=== PATIENT | female | born 1935 | race Caucasian/White ===

== ENCOUNTER 2017-01-23 06:13 | Day surgery (SDC) | payer MEDICARE ==
[~2017-01-23] VITALS: Ht 152.4 cm; Wt 67.0 kg
[2017-01-23 07:18] VITALS: BP 170/88; PULSE 94; RESP 18; O2SAT 100
[2017-01-23] MEDS ORDERED: METF500T PO (07:18)
[2017-01-23] MEDS ORDERED: AMLO5TAB2 PO (07:18)
[2017-01-23] MEDS ORDERED: TRAZ150T75 PO (07:18)
[2017-01-23] MEDS ORDERED: VITA100021 SL (07:18)
[2017-01-23] MEDS ORDERED: RANI300C PO (07:18)
[2017-01-23] MEDS ORDERED: VITA20003 (07:18)
[2017-01-23] MEDS ORDERED: LOMO2.5T PO (07:18)
[2017-01-23] MEDS ORDERED: SIME1CHW13 CHEW (07:18)
[2017-01-23] MEDS ORDERED: GLIM1TAB PO (07:18)
[2017-01-23] MEDS ORDERED: HYDR12.56 PO (07:18)
[2017-01-23] MEDS ORDERED: GABA100C4 PO (07:18)
[2017-01-23] MEDS ORDERED: LOVA10TA PO (07:18)
[2017-01-23] MEDS ORDERED: LISI40TA PO (07:18)
[2017-01-23] MEDS ORDERED: MIDAZOLAM HCL 5 MG/5 ML VIAL ONE (08:28)
[2017-01-23] MEDS ORDERED: HEPARIN SODIUM - IV 10,000 UNITS/10 ML VIAL ONE (08:28)
[2017-01-23] MEDS ORDERED: HEPARIN-NS/PF INJ 500 ML ONE (08:28)
[2017-01-23] MEDS ORDERED: NITROGLYCERIN INJ 5 ML ONE (08:28)
[2017-01-23] MEDS ORDERED: CLOPIDOGREL 300 MG TAB ONE (09:41)
[2017-01-23] MEDS ORDERED: ATOR40TA16 PO (09:54)
[2017-01-23] MEDS ORDERED: PLAV75TA29 PO (09:54)
--- NOTE | 2017-01-23 09:55 | CATHPROC ---
[employer] HIS Report Study Information Study Number Admission Scheduled Start Study Start [id number] 01/23/2017 01/23/2017 01/23/2017 [place] Service Cath Endovascular Study Referring Institution Admit Source Facility Department 1 [facility] - Liner Checker Physician and Clinical Staff Initial [facility] [employer] Agent Pilar Jalloh,LINN Recorder Yuli Oconnor,RAH TECH2 Scrub Hosterman, Hamilton,RT(R) Procedures Performed Procedure Location (Site) Vessel Name Angiogram (manual) Fem Sup. (left) Femoral Art Angiogram (manual) Fem Sup. (right) Femoral Art Angiogram (manual) Iliac L. Com. (L4) [place] Art. Angiogram (manual) Iliac R. Com. (R4) [place] Art. Angiogram (manual) PELVIS Angiogram (manual) Popliteal L (L10) Popliteal Angiogram (manual) Popliteal R (R10) Popliteal Angiogram (manual) Tib, Post (Left) Popliteal Angiogram (manual) Tib, Post (right) Popliteal DRYING MACHINE BACK TENDER Fem Sup. (left) Femoral Art DRYING MACHINE BACK TENDER Popliteal L (L10) Popliteal Wire insertion Fem Art (right) Femoral Art Equipment Time Polishing Machine Operator Description Size Mfg Part Number Used/Scraped DBP- CARDIOVASCULAR CATHETER, STEALTH SOLID 09:06 [id number] Used SYSTEM[employer] INC. 1.5MM 30 GRIT *[id number] DBP- CARDIOVASCULAR CATHETER, STEALTH SOLID 09:08 [id number] Used [employer] 1.5MM 30 GRIT *[id number] CARDIOVASCULAR LUBRICANT, VIPERSLIDE [id number] 09:05 Used SYSTEMS INC. ATHERCTOMY *[id number] CARDIOVASCULAR 09:05 WIRE, FIRM (VIPER) 335 [id number] Used SYSTEMS INC. 08:53 CORDIS/ BIANKA RIM SUPER TORQUE CATHETER FR 5 [id number] Used BALLOON, ADMIRAL IN.PACT 6 X 09:27 [employer] 130CM [id number] Used 150 130CM BALLOON, ADMIRAL IN.PACT 6 X 09:20 [employer] 130CM [id number] Used 80 130CM BALLOON, PACIFIC PLUS 5 X 80 09:18 [employer] 130CM [id number] Used 130CM CATHETER, FR5 TRAILBLAZER [id number] 09:00 [employer] 135CM Used .035 *[id number] 08:53 MALLINCKRODT SYRINGE, ANGIOMAT 150ML 150ML [id number] Used 08:53 MED[employer] IND[employer] PACK, CCL CUSTOM * [id number] Used 08:53 MEDLINE PACER PEN, SKIN DUAL W/ RULER * [id number] Used [id number] 09:01 [employer] MEDICAL 30 TERRY INDEFLATOR Used *[id number] PSI-6F-- 09:30 [employer] MEDICAL SHEATH, FR6.5 PRELUDE 11CM FR 6.5 038ACT Used *[id number] 08:53 [employer] WIRE, EXCHANGE 260CM 3MMJ 260CM [id number] Used 08:53 NAMIC MANIFOLD, 4 PORT * [id number] Used 08:53 NAMIC TUBING, HIGH PRESSURE 48" 48" [id number] Used 08:53 [employer] OMNIPAQUE, 300 MG, 100ML 100ML [id number] Used 08:53 [employer] OMNIPAQUE, 300 MG, 100ML 100ML [id number] Used 08:55 [employer] OMNIPAQUE, 300 MG, 50ML 50ML [id number] Used 08:53 [facility] BLANKET,WARM AIR CCL * [id number] Used 08:53 TERUMO MEDICAL SHEATH, FR5 TERUMO (10CM) FR 5 [id number] Used SHEATH, FR6 PINNACLE 08:58 TERUMO MEDICAL/BIANKA FR 6 [id number] Used DESTINATION 45CM WIRE, ANGLE GLIDE STIFF .035 08:53 TERUM[employer] MEDICAL/BIANKA 260CM [id number] Used 260CM Equipment Model, Serial, Lot Number and Expiration Data Description Model Number Serial Number Lot Number Expiration Date BALLOON, ADMIRAL IN.PACT 6 X [id number] 05-04-2018 150 130CM BALLOON, ADMIRAL IN.PACT 6 X [id number] 08-10-2018 80 130CM CATHETER, STEALTH SOLID 1.5MM [id number] 09-16-2018 30 GRIT CATHETER, STEALTH SOLID 1.5MM [id number] 09-16-2018 30 GRIT SHEATH, FR6.5 PRELUDE 11CM [id number] 10-17-2019 WIRE, FIRM (VIPER) 335 [id number] 09-16-2018 History: Current Medications Medication Dosage/Unit Route Frequency Last Date/Time Taken NORVASC HCTZ LISINOPRIL Statins (any) Glucophage History: Risk Factors Hypertension Dyslipidemia Yes Yes Peripheral Artery On Dialysis Diabetes Disease History: Other Disease Selection Items Cancer Depression Gerd Renal Failure/Insufficiency History: Other Current Smoker Method Yes Cigarettes Medication Medication Total Dose (Bolus/Oral) Medication Total Dosage/Unit 1% XYLOCAINE 20 mL FENTANYL 100 mcg HEPARIN 5000 units NTG (IC) 500 mcg OXYGEN 2 l/min PLAVIX 600 mg VERSED 5 mg Medications (Bolus/Oral) Medication Time Given Dosage/Unit Administered By Reason VERSED 01/23/2017 8:48:17 AM 2 mg Hany, Pilar 2 mg VERSED given in lab by Pilar Jalloh RN in Left Forearm via Peripheral IV. Ordered by Hansel Jimenez. FENTANYL 01/23/2017 8:49:20 AM 50 mcg Emilee Jallohnifer 50 mcg FENTANYL given in lab by Pilar Jalloh RN in Left Forearm via Peripheral IV. Ordered by Hansel Avelar. 1% XYLOCAINE 01/23/2017 8:51:00 AM 20 mL Hansel Jimenez Patient arrived on 20 mL 1% XYLOCAINE given by Hansel Jimenez in Right Groin via Subcutaneous. OXYGEN 01/23/2017 8:56:29 AM 2 l/min Pilar Jalloh 2 l/min OXYGEN given in lab by Pilar Jalloh RN via Nasal. Ordered by Hansel Jimenez. HEPARIN 01/23/2017 9:03:05 AM 5000 units Pilar Jalloh 5000 units HEPARIN given in lab by Pilar Jalloh RN in Left Forearm via Peripheral IV. Ordered by Hansel Jimenez. NTG (IC) 01/23/2017 9:08:47 AM 100 mcg Hansel Jimenez 100 mcg NTG (IC) given in lab by Hansel Jimenez via Intra-arterial. Ordered by Hansel Jimenez. VERSED 01/23/2017 9:09:33 AM 1 mg Emilee Jallohnifer 1 mg VERSED given in lab by Pilar Jalloh RN in Left Forearm via Peripheral IV. Ordered by Hansel Jimenez. FENTANYL 01/23/2017 9:10:38 AM 25 mcg Emilee Jallohnifer 25 mcg FENTANYL given in lab by Pilar Jalloh RN in Left Forearm via Peripheral IV. Ordered by Hansel Avelar. NTG (IC) 01/23/2017 9:11:48 AM 200 mcg Hansel Jimenez 200 mcg NTG (IC) given in lab by Hansel Jimenez via Intra-arterial. Ordered by Hansel Jimenez. NTG (IC) 01/23/2017 9:13:57 AM 200 mcg Hansel Jimenez 200 mcg NTG (IC) given in lab by Hansel Jimenez via Intra-arterial. Ordered by Hansel Jimenez. VERSED 01/23/2017 9:14:34 AM 1 mg Adamy, Pilar 1 mg VERSED given in lab by Pilar Jalloh RN in Left Forearm via Peripheral IV. Ordered by Hansel Jimenez. FENTANYL 01/23/2017 9:15:59 AM 25 mcg Adamy, Pilar 25 mcg FENTANYL given in lab by Pilar Jalloh RN in Left Forearm via Peripheral IV. Ordered by Hansel Avelar. VERSED 01/23/2017 9:29:10 AM 1 mg Adamy, Pilar 1 mg VERSED given in lab by Pilar Jalloh RN in Left Forearm via Peripheral IV. Ordered by Hansel Jimenez. PLAVIX 01/23/2017 9:48:57 AM 600 mg Hany, Pilar 600 mg PLAVIX given in lab by Pilar Jalloh RN via Oral. Ordered by Hansel Jimenez. Medication (Drip) Medication Time Given Dosage/Unit Concentration/Unit Diluent (ml) Solution IV Solutions 01/23/2017 8:22:27 AM 0 mL (IV) 500 NaCl .9 Patient arrived on IV Solutions given by Pilar Jalloh RN in Left Forearm via Peripheral IV. Pump/ Drip Flow = 20 ml/hr using NaCl .9. Initial Case Assessment Cardiovascular HR Rhythm NIBP Chest Pain 89 sr 174/87 0 Edema Present Skin color Skin None Normal Warm Dry Circulatory - Right Pulses Dorsalis Pedis Posterior Tibial Femoral 2 d 2 Scale (0,1,2,3,4,d) Circulatory - Left Pulses Dorsalis Pedis Posterior Tibial Femoral 1 d 1 Scale (0,1,2,3,4,d) Neurological State Oriented to time-place- Alert Moves all extremities person Respiration - General Respiration Rate SpO2 (%) (B/min) 10 99 Final Case Assessment Cardiovascular HR Rhythm NIBP Chest Pain 88 sr 164/101 0 Circulatory - Right Pulses Dorsalis Pedis Posterior Tibial Femoral 2 d 2 Scale (0,1,2,3,4,d) Circulatory - Left Pulses Dorsalis Pedis Posterior Tibial Femoral 1 d 1 Scale (0,1,2,3,4,d) Neurological State Oriented to time-place- Alert Moves all extremities person Respiration - General Respiration Rate SpO2 (%) O2 (lpm) (B/min) 11 100 2 Chronological Log Time Study Chronological Log 8:21:43 Patient arrived via Bed. 8:21:46 Patient Name, D.O.B, / Armband Verified By R.N. 8:21:47 Consent signed by the physician and the patient and verified by the Liner Checker staff. 8:21:48 Pre-op and post- op instructions given; patient acknowledges understanding of instructions. 8:21:49 Verbal Stimulation=2 Physical Stimulation=2 Airway=2 Respiration=2 TOTAL=8. (0=absent, 1=miner ited, 2=present) 8:21:51 Presedation assessment performed by Liner Checker RN. 8:21:53 Patient has been NPO for More than 6Hrs. 8:21:54 Skin Breakdown-none 8:21:55 Vasile Prominences Protected 8:21:59 A # 20 IV was noted in the Forearm (left). Grade = patent Patient arrived on IV Solutions given by Pilar Jalloh, RN in Left Forearm via Peripheral IV. Pump/Drip Flow = 20 8:22:27 ml/hr using NaCl .9. 8:22:52 History and physical on the chart or being dictated. Assessment: Initial Case, HR=89 BPM, Rhythm=sr, QZVH=573/87 mmhg, Chest Pain=0, Edema=None, [place] r=Normal, Skin = Warm, Dry Right Pulses: Gualberto Ped=2, Post Tib=d, Femoral=2 8:22:53 Left Pulses: Gualberto Ped=1, Post Tib=d, Femoral=1 Neurological: State=Alert, Ox3, SINHA Respiration: Resp=10 B/min, SpO2=99 % Vitals capture started with the following parameters, Patient=Adult, Interval=5 min, Initial Pre mxtgh=079 mmHg, 8:25:00 Deflation Rate=5 mmHg 8:26:23 WSSS=596/102 mmhg, SpO2=99.0 % 8:30:49 HR=89 bpm, AUDU=346/93 mmhg, SpO2=99.0 %, Resp=11 B/min 8:35:48 HR=92 bpm, ZPKO=826/87 mmhg, SpO2=99.0 %, Resp=10 B/min, Pain=0, Neil=10, Brambila=2 8:36:48 Bilateral groins prepped with 2% chlorhexidine, and draped after a 3 min. waiting time. 8:41:13 HR=93 bpm, TQSA=774/94 mmhg, SiE7=665.0 %, Resp=9 B/min, Pain=0, Neil=10, Brambila=2 8:42:24 MD paged 8:42:30 Pressure channel 1 zeroed. 8:45:11 MD responded 8:45:48 HR=92 bpm, ENBG=835/91 mmhg, SpO2=99.0 %, Resp=13 B/min 8:47:31 MD arrived. 8:48:17 2 mg VERSED given in lab by Pilar Jalloh, LINN in Left Forearm via Peripheral IV. Ordered b y Hansel Jimenez. 8:49:20 50 mcg FENTANYL given in lab by Pilar Jalloh, LINN in Left Forearm via Peripheral IV. Order ed by Hansel Jimenez. Time Out. Correct patient, correct procedure,correct physician, power injector loaded with contr ast with surgical team 8:50:43 present. Time Out Concurred by MD and individual staff in procedure 8:50:56 Case Start 8:51:00 Patient arrived on 20 mL 1% XYLOCAINE given by Hansel Jimenez in Right Groin via Subcutaneou s. 8:51:23 Access site was Right Femoral Artery. 8:51:41 A WIRE, EXCHANGE 260CM 3MMJ 260CM was inserted via Fem Art (right). 8:51:59 AW=935 bpm, IBSG=462/100 mmhg, SpO2=92.0 %, Resp=7 B/min 8:52:30 A SHEATH, FR5 TERUMO (10CM) FR 5 was advanced into the Fem Art (right) using the Percutaneou s technique. A PIGTAIL ANG. INFINITI CATHETER FR 5 was advanced over a wire. OMNIPAQUE, 300 MG, 50ML 50ML was used for 8:54:19 injections. After removing the current catheter a RIM SUPER TORQUE CATHETER FR 5 was advanced over a WIRE, E XCHANGE 8:55:14 260CM 3MMJ 260CM. 8:55:44 LB=389 bpm, NNQX=500/89 mmhg, SpO2=92 %, Resp=10 B/min 8:55:58 Wire removed Recorded Pressure: Ao, FR=339, Condition=Condition 1 8:56:14 (Aorta) Ao 170/80/119 8:56:29 2 l/min OXYGEN given in lab by Pilar Jalloh, RN via Nasal. Ordered by Hansel Jimenez. 8:56:47 PELVIS angiogram, manually injected. 8:57:03 Iliac L. Com. (L4) angiogram, manually injected. 8:57:27 Fem Sup. (left) angiogram, manually injected. 8:57:47 Popliteal L (L10) angiogram, manually injected. 8:58:27 Tib, Post (Left) angiogram, manually injected. 8:59:58 A WIRE, ANGLE GLIDE STIFF .035 260CM 260CM was inserted up and over to the left via Fem Art (right). 9:00:45 HR=99 bpm, UXBN=103/90 mmhg, DoL2=173.0 %, Resp=10 B/min 9:02:46 Catheter was removed w/o difficulty A SHEATH, FR6 PINNACLE DESTINATION 45CM FR 6 was exchanged in the Fem Art (right). This was nece ssary in 9:02:52 order to accomodate a larger catheter. 9:03:05 5000 units HEPARIN given in lab by Pilar Jalloh, RN in Left Forearm via Peripheral IV. Or dered by Hansel Jimenez. A CATHETER, FR5 TRAILBLAZER .035 135CM was advanced over a wire. OMNIPAQUE, 300 MG, 100ML 100ML was 9:04:09 used for injections. 9:04:46 Wire removed 9:04:50 Popliteal L (L10) angiogram, manually injected. 9:05:48 HR=99 bpm, ELGF=056/84 mmhg, DxZ1=668.0 %, Resp=8 B/min 9:07:11 Tib, Post (Left) angiogram, manually injected. 9:08:03 A WIRE, FIRM (VIPER) 335 was inserted up and over to the left via Fem Art (right). 9:08:28 Catheter was removed w/o difficulty 9:08:30 Popliteal L (L10) angiogram, manually injected. 9:08:47 100 mcg NTG (IC) given in lab by Hansel Jimenez via Intra-arterial. Ordered by Cass Jimenez 9:09:33 1 mg VERSED given in lab by Pilar Jalloh RN in Left Forearm via Peripheral IV. Ordered Hansel Banks. 9:10:19 An CATHETER, STEALTH SOLID 1.5MM 30 GRIT catheter was inserted into the Fem Art (right). 9:10:38 25 mcg FENTANYL given in lab by Pilar Jalloh RN in Left Forearm via Peripheral IV. Order ed by Hansel Jimenez. 9:10:45 KG=750 bpm, ZNPT=180/77 mmhg, IrE6=878.0 %, Resp=11 B/min 9:10:57 Passes made at 60,000 in the left popliteal with the 1.5 crown 9:11:48 200 mcg NTG (IC) given in lab by Hansel Jimenez via Intra-arterial. Ordered by Cass Jimenez 9:11:54 Passes made at 120,000 in the left popliteal with the 1.5 crown. 9:12:36 Passes made with the 1.5 crown in the LSFA 9:13:57 200 mcg NTG (IC) given in lab by Hansel Jimenez via Intra-arterial. Ordered by Cass Jimenez 9:14:08 Passes made with the 1.5 crown in the LSFA. 9:14:34 1 mg VERSED given in lab by Pilar Jalloh RN in Left Forearm via Peripheral IV. Ordered Hansel Banks. 9:15:24 1.5 crown atherectomy Catheter was removed w/o difficulty 9:15:31 Activated Clotting Time Drawn 9:15:59 25 mcg FENTANYL given in lab by Pilar Jalloh RN in Left Forearm via Peripheral IV. Order ed by Hansel Jimenez. 9:16:21 HR=99 bpm, WCUL=304/99 mmhg, SpO2=97.0 %, Resp=11 B/min 9:16:50 A BALLOON, PACIFIC PLUS 5 X 80 130CM 130CM was inserted over WIREFRANK (VIPER) 335 via the Fem Art (right). 9:16:51 In the Fem Sup. (left) a BALLOON, PACIFIC PLUS 5 X 80 130CM 130CM was inflated to 6 atms for 60 seconds. 9:17:53 In the Fem Sup. (left) a BALLOON, PACIFIC PLUS 5 X 80 130CM 130CM was inflated to 6 atms for 30 seconds. 9:18:30 In the Fem Sup. (left) a BALLOON, PACIFIC PLUS 5 X 80 130CM 130CM was inflated to 6 atms for 30 seconds. 9:19:23 Balloon Removed. 9:19:58 ACT (Normal Range 90-180) = 251 A CATHETER, FR5 TRAILBLAZER .035 135CM was advanced over a wire. OMNIPAQUE, 300 MG, 100ML 100ML was 9:20:40 used for injections. 9:20:49 HR=97 bpm, TIVW=590/86 mmhg, SpO2=96.0 %, Resp=9 B/min 9:20:52 The previous wire was exchanged for a WIRE, ANGLE GLIDE STIFF .035 260CM 260CM. A BALLOON, ADMIRAL IN.PACT 6 X 80 130CM 130CM was inserted over WIRE, ANGLE GLIDE STIFF .035 260 CM 9:21:58 260CM via the Popliteal L (L10). 9:22:36 In the Popliteal L (L10) a BALLOON, ADMIRAL IN.PACT 6 X 80 130CM 130CM was inflated to 6 terry s for 60 seconds. 9:23:03 In the Popliteal L (L10) a BALLOON, ADMIRAL IN.PACT 6 X 80 130CM 130CM was inflated to 8 terry s for 180 seconds. 9:25:46 HR=95 bpm, YYAW=198/92 mmhg, SpO2=98.0 %, Resp=9 B/min A BALLOON, ADMIRAL IN.PACT 6 X 150 130CM 130CM was inserted over WIRE, ANGLE GLIDE STIFF .035 26 0CM 9:28:20 260CM via the Fem Art (right). 9:29:05 In the Fem Sup. (left) a BALLOON, ADMIRAL IN.PACT 6 X 150 130CM 130CM was inflated to 8 atms for 180 seconds. 9:29:10 1 mg VERSED given in lab by Pilar Jalloh, LINN in Left Forearm via Peripheral IV. Ordered Hansel Banks. 9:31:26 HR=96 bpm, MQHW=117/104 mmhg, ItO5=468.0 %, Resp=10 B/min 9:33:39 Sheath pulled back into Aorta, pressures measured Recorded Pressure: LIlcA, HR=91, Condition=Condition 1 9:34:57 (Left Iliac Artery) LIlcA 115/65/90 Recorded Pressure: LIlcA, AoAbd, HR=89, Condition=Condition 1 9:35:00 (Left Iliac Artery) LIlcA 115/69/90, (Descending Abdominal Aorta) AoAbd 146/69/99 Recorded Pressure: AoAbd, HR=91, Condition=Condition 1 9:35:05 (Descending Abdominal Aorta) AoAbd 142/69/99 Recorded Pressure: AoAbd, HR=91, Condition=Condition 1 9:35:12 (Descending Abdominal Aorta) AoAbd 166/81/119 9:35:54 Iliac R. Com. (R4) angiogram, manually injected. 9:36:18 Fem Sup. (right) angiogram, manually injected. 9:36:26 Popliteal R (R10) angiogram, manually injected. 9:36:27 HR=92 bpm, ZOIN=985/105 mmhg, RxC2=659.0 %, Resp=12 B/min 9:36:43 Tib, Post (right) angiogram, manually injected. 9:37:32 A WIRE, EXCHANGE 260CM 3MMJ 260CM was inserted via Fem Art (right). A SHEATH, FR6.5 PRELUDE 11CM FR 6.5 was exchanged in the Fem Art (right). This was necessary in order to 9:37:43 minimize site leakage. 9:40:10 Case End Assessment: Final Case, HR=88 BPM, Rhythm=sr, VJUG=996/101 mmhg, Chest Pain=0 Right Pulses: Gualberto Ped=2, Post Tib=d, Femoral=2 9:40:14 Left Pulses: Gualberto Ped=1, Post Tib=d, Femoral=1 Neurological: State=Alert, Ox3, SINHA Respiration: Resp=11 B/min, OmI2=477 %, O2=2 lpm 9:40:46 In the Fem Art (right) the SHEATH, FR6.5 PRELUDE 11CM FR 6.[address] by [place] Live RT(R). 9:40:50 HR=90 bpm, OVZZ=262/101 mmhg, FiS6=342.0 %, Resp=9 B/min 9:41:48 Sterile dressing applied to site 9:46:25 HANO=862/96 mmhg, VyH5=472.0 % 9:46:29 Vitals capture stopped. 9:47:49 No case complications noted. 9:47:50 Cine recording checked. 9:47:52 Bedside Report will be given. 9:47:57 Patient moved to stretcher 9:48:57 600 mg PLAVIX given in lab by Pilar Jalloh RN via Oral. Ordered by Hansel Jimenez. 9:51:35 Patient transported to DOCU End Study - Contrast Media Used In Study Contrast Total Opened (mL) Total Used (mL) Total Wasted (mL) Omnipaque 145 145 0 End Study - Radiation Exposure Fluoro Time (minutes) 10.2 End Study - Patient Disposition Complications Transferred To Interventional Outcome No Telemetry Bed successful
[2017-01-23] MEDS ORDERED: LORazepam 2 MG/ML VIAL IV PRN (10:00)
[2017-01-23] MEDS ORDERED: SODIUM CHLOR 0.9% 1000 ML INJ 1,000 ML IV SCH (10:00)
[2017-01-23] MEDS ORDERED: MORPHINE SULFATE 4 MG/ML INJ IV PUSH PRN (10:00)
[2017-01-23] MEDS ORDERED: LIDOCAINE 2% JELLY 30 ML TUBE TOP PRN (10:00)
[2017-01-23] MEDS ORDERED: ATROPINE SULFATE 1 MG/ML VIAL IV PRN (10:00)
[2017-01-23] MEDS ORDERED: LIDOCAINE HCL 1% 50 ML VIAL INFIL PRN (10:00)
[2017-01-23] MEDS ORDERED: SODIUM CHLOR 0.9% 250 ML INJ 250 ML IV PRN (10:00)
[2017-01-23] MEDS ORDERED: MISC INFORMATION XX ONE (10:00)
[2017-01-23] MEDS ORDERED: ONDANSETRON HCL 4 MG/2 ML VIAL IV PRN (10:00)
[2017-01-23] MEDS ORDERED: METOCLOPRAMIDE HCL 10 MG/2 ML VIAL IV PRN (10:00)
[2017-01-23] MEDS ORDERED: ACETAMINOPHEN 325 MG TAB PO PRN (10:00)
[2017-01-23] MEDS ORDERED: CLOPIDOGREL 300 MG TAB PO ONE (10:00)
[2017-01-23] MEDS ORDERED: TEMAZEPAM 15 MG CAP PO PRN (10:00)
[2017-01-23] MEDS ORDERED: BACITRACIN OINT 0.9 GM PKT TOP ONE (11:00)
[2017-01-23] MEDS ORDERED: oxyCODONE/ACETAMINOPHEN 10 MG/325 MG TAB PO PRN (11:00)
--- NOTE | 2017-01-23 11:26 | MA ---
cc: ROHINI MOLINA DATE 01/23/2017 PERIPHERAL ANGIOGRAPHY WITH INTERVENTION. PROCEDURE PERFORMED 1. Fluoroscopy with interpretation. 2. Descending aortography. 3. Bilateral lower extremity peripheral angiography with first, second and third order visualization interpretation. 4. Orbital rotational atherectomy and balloon angioplasty with drug-coated balloons of the left superficial femoral and popliteal arteries. METHOD The risks, benefits and alternatives were discussed with the patient. The patient understood and consented. PROCEDURE The patient was brought into the catheterization lab, placed on the catheterization table. The right groin was prepped and draped in a sterile fashion. The right groin was anesthetized with 2% lidocaine. The right common femoral artery was cannulated and a 5-Somali, 11-cm sheath was placed without difficulty. DESCENDING AORTOGRAPHY Descending aortography was performed in anterior and posterior view using a 24-cc contrast injection with good opacification. Descending aortography revealed mild infrarenal descending aortic atherosclerosis. PERIPHERAL ANGIOGRAPHY 1. Left common iliac artery has a heavily calcified eccentric 75% stenosis. There is a 40 mmHg translesional gradient. The left external and internal iliac arteries have minor luminal irregularities. The left common femoral also has moderate calcium present but no obstructive disease. The left profunda artery has minor luminal irregularities. The left superficial femoral artery in the mid-segment has 70% calcific stenosis. The left popliteal artery has 90% discrete stenosis which is also calcific. There is three-vessel runoff below the knee in the left lower extremity with small vessel distal disease. Anterior, posterior tibial and peroneal vessels are patent. 2. Right common internal and external iliac arteries have minor luminal irregularities. The right common femoral also has moderate calcium present but no significant obstruction. The right profunda artery has mild luminal irregularities. The left superficial femoral artery in the mid-segment has heavily calcified 80% stenosis. The right popliteal artery has 90% calcific stenosis. There is three-vessel runoff below the knee in the right lower extremity. The peroneal is smaller in caliber size. The anterior tibial is larger caliber. The posterior tibial appears to be occluded proximally and canal collateralized distally. PERCUTANEOUS INTERVENTION A 6-Somali, 45-cm [employer] Throckmorton sheath was advanced up-and-over the arch. Heparin was administered throughout the entire procedure to maintain appropriate coagulation. Orbital rotational atherectomy was then performed at 60,000, then 120,000 revolutions per minute sequentially in the left superficial and popliteal arteries. A 5.0 x 80-mm Medtronic balloon was then predilated through the superficial and popliteal arteries. A 6.0 x 80-mm drug-coated balloon was then deployed in the left popliteal artery for prolonged inflation, followed by a 6.0 x 150-mm Medtronic drug-coated balloon in the left superficial femoral artery for prolonged inflation. Repeat angiography showed no significant residual stenosis, TERENCE-3 flow. The sheath was removed and a 6-Somali short sheath was placed without difficulty. CONCLUSIONS 1. 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 2. Severe left common iliac artery stenosis. 3. Mild infrarenal descending aortic atherosclerosis. 4. Successful orbital rotational atherectomy and balloon angioplasty with drug-coated balloon of the left superficial and popliteal arteries. PLAN The patient will be monitored closely for any post-procedural complications. I think this will translate well to symptomatic improvement in the left lower extremity. She had previously complained of left hip pain which I thought was osteoarthritic but seeing the left common iliac artery stenosis, this may be the origin to her symptoms. We elected not to proceed with intervention of the left common iliac artery. Our anticipation is to bring her back for an elective intervention of the right lower extremity at which time we will then address the left common iliac artery stenosis. We will initiate Plavix. Anticipate discharge later today. MD MARCELA Cabrera/STEPHENIE /9:47 AM /11:09 AM
[2017-01-23] MEDS ORDERED: IOHEXOL 350 MG/ML 100 ML BTL (for Cath Lab) OTHER ONE (13:59)
[2017-01-24] MEDS ORDERED: CLOPIDOGREL 75 MG TAB PO SCH (09:00)
== END 2017-01-23 18:13 | disposition home or self-care (01) ==
LOC: HDIC 06:13 → HDOC 06:13
PROVIDERS: ATTEND Internal Medicine
DX: I70.212 Atherosclerosis of native arteries of extremities with intermittent claudication, left leg (principal); I77.1 Stricture of artery; I70.0 Atherosclerosis of aorta; I10 Essential (primary) hypertension; E11.9 Type 2 diabetes mellitus without complications; Z79.84 Long term (current) use of oral hypoglycemic drugs
CPT/HCPCS: 37225; 75625; 75716; 85002; 86850; 86900; 86901; C1714; C1725; C1751; C1769; C1893; C2623; J1644; J2250; J3010; Q9967

== ENCOUNTER → 2017-12-27 | Day surgery (SDC) | payer MEDICARE ==
[~2017-12-27] VITALS: Ht 154.9 cm; Wt 68.0 kg
[~2017-12-27] MED LIST: ALPR0.5T3 PO; AMLO5TAB2 PO; ATOR40TA16 PO; CHLORHEXIDINE GLUCONATE 2 % 1 PACK (2 CLOTHS) TOPICAL PRN; FLURBIPROFEN 0.03% OPHT SOLN 2.5 ML BTL ONE; GABA100C4 PO; GLIM1TAB PO; HYDR12.56 PO; LACTATED RINGER'S 1000 ML IV PRN; LIDOCAINE HCL 1% PF 30 ML VIAL ONE; LIDOCAINE HCL 2% JELLY 5 ML SYRINGE TOPICAL ONE; LISI40TA PO; LOMO2.5T PO; LOVA10TA PO; METF500T PO; METOPROLOL TARTRATE 25 MG TAB PO PRN; PLAV75TA29 PO; POVIDONE IODINE 5% (ANTISEPSIS KIT) 4 APPLICATIONS EACH NARE PRN; PROPARACAINE HCL 0.5% OPHT SOLN 15 ML BTL RIGHT EYE ONE; RANI150T PO; SIME1CHW13 CHEW; SODIUM CHLORID 0.9% 500 ML IV PRN; TOBRAMYCIN/DEXAMETHASONE OPTH OINT 3.5 GM TUBE ONE; TRAZ1TAB14 PO; VITA100021 SL; VITA20003
[2017-12-27] MEDS: TROPICAMIDE 1% OPHT SOLN 15 ML BTL RIGHT EYE SCH ×4 (08:45→09:00)
[2017-12-27] MEDS: PHENYLEPHRINE HCL 10% OPTH SOLN 5 ML BTL RIGHT EYE SCH ×4 (08:45→09:00)
[2017-12-27] MEDS: CYCLOPENTOLATE HCL 1% OPHT SOLN 2 ML BTL RIGHT EYE SCH ×4 (08:45→09:00)
[2017-12-27 10:27] VITALS: TEMP 97.6
[2017-12-27 10:50] VITALS: BP 176/81; PULSE 85; RESP 14; O2SAT 97
--- NOTE | 2017-12-27 11:46 | MP ---
cc: Dat Kong MD DATE OF OPERATION: 12/27/2017 [facility] # [id number] PREOPERATIVE DIAGNOSIS: Visually significant cataract, right eye. POSTOPERATIVE DIAGNOSIS: Visually significant cataract, right eye. OPERATION: Phacoemulsification with posterior chamber lens implantation, right eye. SURGEON: Dat Kong MD ANESTHESIA: Topical with MAC. COMPLICATIONS: None. PROCEDURE: After informed consent was obtained, the patient was brought into the operative suite and placed on appropriate monitors by the Anesthesia Service. The patient had been given dilating drops and topical lidocaine gel in the holding area. The patient's operative eye was then prepped and draped in the usual sterile fashion. A wire lid speculum was placed. Further 2% lidocaine was then dropped on the cornea prior to beginning the procedure. A paracentesis incision was made in the peripheral cornea with a 1 mm carina keratome. The anterior chamber was filled with viscoelastic. The anterior chamber was then entered through a stepped, clear corneal incision using a sharp 3 mm carina keratome. A circular tear capsulorrhexis was then made with a bent needle cystitome. Following hydrodissection of the lens nucleus with balance saline, phaco-emulsification of the nucleus was performed using a modified chopping technique. The remaining cortex was removed with irrigation/aspiration. The prior two procedures were both performed using the handpieces of the [employer] phaco unit. The capsular bag was then filled with viscoelastic. The intraocular lens was then injected into the capsular bag and positioned. The type of intraocular lens and its power can be found elsewhere in this chart. The remaining viscoelastic was then removed from the anterior chamber with the IA handpiece. The anterior chamber was reformed with balanced saline. The wound was then closed securely with stromal hydration. It was found to be watertight to an intraocular pressure of at least 30 mmHg by palpation. A small amount of balanced salt solution was then removed through the paracentesis site and the intraocular pressure at the end of the case was approximately 20 by palpation. All drapes were then removed. TobraDex ointment was then placed in the eye, which was closed beneath a semi-pressure patch dressing. The patient tolerated this procedure well and left the operating room awake and alert. The patient is to follow-up in my office in the morning. Dat MD SOLEDAD May , 11:40 AM , 11:45 AM
== END | disposition home or self-care (01) ==
LOC: PHSDC 07:15
PROVIDERS: ATTEND Optometrist Occupational Vision
DX: H25.11 Age-related nuclear cataract, right eye (principal)
CPT/HCPCS: 00142; 66984; J7040; V2632

== ENCOUNTER → 2018-02-07 | Day surgery (SDC) | payer MEDICARE ==
[~2018-02-07] VITALS: Ht 154.9 cm; Wt 62.0 kg
[~2018-02-07] MED LIST changes: +CYCLOPENTOLATE HCL 1% OPHT SOLN 2 ML BTL ONE; +HYALURONIDASE/LIDOCAINE/BUPIVACAINE 5 ML SYR LEFT EYE ONE; -HYDR12.56 PO; -LIDOCAINE HCL 2% JELLY 5 ML SYRINGE TOPICAL ONE; -LOMO2.5T PO; -LOVA10TA PO; +PHENYLEPHRINE HCL 10% OPTH SOLN 5 ML BTL ONE; +PROPARACAINE HCL 0.5% OPHT SOLN 15 ML BTL LEFT EYE ONE; +PROPARACAINE HCL 0.5% OPHT SOLN 15 ML BTL ONE; -PROPARACAINE HCL 0.5% OPHT SOLN 15 ML BTL RIGHT EYE ONE; +PROPOFOL 200 MG/20 ML AMP ONE; +TROPICAMIDE 1% OPHT SOLN 15 ML BTL ONE
[2018-02-07] MEDS: TROPICAMIDE 1% OPHT SOLN 15 ML BTL LEFT EYE SCH ×4 (09:00→09:15)
[2018-02-07] MEDS: CYCLOPENTOLATE HCL 1% OPHT SOLN 2 ML BTL LEFT EYE SCH ×4 (09:00→09:15)
[2018-02-07] MEDS: FLURBIPROFEN 0.03% OPHT SOLN 2.5 ML BTL LEFT EYE SCH ×4 (09:00→09:15)
[2018-02-07] MEDS: PHENYLEPHRINE HCL 10% OPTH SOLN 5 ML BTL LEFT EYE SCH ×4 (09:00→09:15)
[2018-02-07 09:13] VITALS: PULSE 80
[2018-02-07 09:27] VITALS: PULSE 76
[2018-02-07 09:36] VITALS: PULSE 74
[2018-02-07 10:05] VITALS: TEMP 98
--- NOTE | 2018-02-07 10:11 | MP ---
cc: Dat Kong MD DATE OF OPERATION: 02/07/2018 [facility] NUMBER: [id number] PREOPERATIVE DIAGNOSIS: Visually significant cataract left eye. POSTOPERATIVE DIAGNOSIS: Visually significant cataract left eye. OPERATION: Phacoemulsification with posterior chamber lens implantation, left eye. SURGEON: Dat Kong MD ANESTHESIA: Retrobulbar with MAC. COMPLICATIONS: None. PROCEDURE: After informed consent was obtained, the patient was brought into the operative suite and placed on appropriate monitors by the Anesthesia Service. The patient had received a prior retrobulbar injection of local anesthetic by the Anesthesia Service in the holding area. The patient's operative eye was then prepped and draped in the usual sterile fashion. A wire lid speculum was placed. A paracentesis incision was made in the peripheral cornea with a 1 mm carina keratome. The anterior chamber was filled with viscoelastic. The anterior chamber was then entered through a stepped, clear corneal incision using a sharp 3 mm carina keratome. A circular tear capsulorrhexis was then made with a bent needle cystitome. Following hydrodissection of the lens nucleus with balanced saline, phaco-emulsification of the nucleus was performed using a modified chopping technique. The remaining cortex was removed with irrigation/aspiration. The prior two procedures were both performed using the handpieces of the [employer] phaco unit. The capsular bag was then filled with viscoelastic. The intraocular lens was then injected into the capsular bag and positioned. The type of intraocular lens and its power can be found elsewhere in this chart. The remaining viscoelastic was then removed from the anterior chamber with the IA handpiece. The anterior chamber was reformed with balanced saline. The wound was then closed securely with stromal hydration. It was found to be watertight to an intraocular pressure of at least 30 mmHg by palpation. A small amount of balanced salt solution was then removed through the paracentesis site and the intraocular pressure at the end of the case was approximately 20 by palpation. All drapes were then removed. TobraDex ointment was then placed in the eye, which was closed beneath a semi-pressure patch dressing. The patient tolerated this procedure well and left the operating room awake and alert. The patient is to follow-up in my office in the morning. Dat MD AMANDA May/YASSINE , 10:03 AM , 10:10 AM
[2018-02-07 10:26] VITALS: BP 148/77; PULSE 78; RESP 16; O2SAT 98
== END | disposition home or self-care (01) ==
LOC: PHSDC 07:07
PROVIDERS: ATTEND Optometrist Occupational Vision
DX: H25.12 Age-related nuclear cataract, left eye (principal); H43.813 Vitreous degeneration, bilateral; E11.9 Type 2 diabetes mellitus without complications; Z79.01 Long term (current) use of anticoagulants
CPT/HCPCS: 00142; 66984; J7040; V2632